=== PATIENT | male | born 1990 ===

== ENCOUNTER 2018-01-02 16:27 | Emergency (ER) | payer MEDICAID ==
[2018-01-02 16:52] VITALS: BP 101/63; PULSE 65; RESP 18; TEMP 99.2; O2SAT 100
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
--- NOTE | 2018-01-02 18:38 | RAD ---
PROCEDURE: Right Hand Radiographs. HISTORY: hand injury, pain COMPARISON: None. FINDINGS: BONES: Deformity of the 2nd metacarpal likely sequela of prior trauma. No acute fracture identified. JOINTS: Normal. No osteoarthritic changes. SOFT TISSUES: Normal. OTHER FINDINGS: None. IMPRESSION: No acute findings related to/accounting for the clinical presentation.
== END 2018-01-02 18:11 | disposition home or self-care (01) ==
LOC: C.ER 16:27
DX: S60.221A Contusion of right hand, initial encounter (principal); W18.30XA Fall on same level, unspecified, initial encounter; Y92.9 Unspecified place or not applicable; Z87.81 Personal history of (healed) traumatic fracture

== ENCOUNTER 2018-01-22 15:28 | Emergency (ER) | payer MEDICAID ==
[2018-01-22 16:17] VITALS: BP 102/64; PULSE 55; RESP 18; TEMP 98.1; O2SAT 99
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
== END 2018-01-22 16:51 | disposition home or self-care (01) ==
LOC: C.ER 15:28
DX: S86.912A Strain of unspecified muscle(s) and tendon(s) at lower leg level, left leg, initial encounter (principal); V19.9XXA Pedal cyclist (driver) (passenger) injured in unspecified traffic accident, initial encounter; Y93.55 Activity, bike riding